=== PATIENT | male | born 1965 | race Caucasian/White ===

== ENCOUNTER 2022-02-05 22:00 | Inpatient (IN) | payer BC ==
[~2022-02-05] VITALS: Ht 177.8 cm; Wt 80.8 kg
[2022-02-05 22:08] VITALS: BP 144/72
[2022-02-05 22:41] LABS: BILIRUBIN Negative (Negative); BLOOD Negative (Negative); CLARITY Clear (Clear); COLOR Yellow (Yellow); GLUCOSE Negative (Negative); KETONE Trace (Negative); LEUKO ESTERASE Negative (Negative); NITRITE Negative (Negative); UROBILINOGEN 0.2 E.U./dl (0.0-1.0)
[2022-02-05 22:54] LABS: BASO % 0.3 % (0.0-1.0); EOS % 0.3 % (1.0-4.0); HEMATOCRIT 43.8 % (42.0-52.0); LYMPH # 0.9 10*3/uL (1.3-4.4); LYMPH % 8.1 % (27.0-41.0); MEAN CELL VOLUME 95.6 fl (80.0-94.0); MEAN CORPUSCULAR HGB 32.8 pg (27.0-31.0); MEAN CORPUSCULAR HGB CONC 34.2 g/dl (33.0-37.0); MEAN PLATELET VOLUME 11.2 fl (9.6-12.3); MONO # 0.9 10*3/uL (0.1-1.0); MONO % 8.4 % (3.0-9.0); NEUT # 8.8 10*3/uL (2.3-7.9); NEUT % 82.7 % (47.0-73.0); PLATELET COUNT AUTOMATED 163 10*3/uL (130-400); RED BLOOD COUNT 4.58 10*6/uL (4.50-5.90); RED CELL DISTRI WIDTH 12.1 % (0-14.5); WHITE BLOOD COUNT 10.7 10*3/uL (4.8-10.8)
[2022-02-05 22:54] LABS: MUCOUS 1+
[2022-02-05 22:55] LABS: RBC 0-2 rbc/hpf (0-2); WBC 0-2 wbc/hpf (0-5)
[2022-02-05 23:09] LABS: ALKALINE PHOSPHATASE 70 U/L (45-117); BUN 15 mg/dl (7-24); CHLORIDE 105 mmol/L (98-107); CREATININE 1.18 mg/dL (0.70-1.30); POTASSIUM 3.9 mmol/L (3.5-5.1); SGOT/AST 31 IU/L (3-35); SGPT/ALT 44 U/L (12-78); SODIUM 137 mmol/L (136-145); TOTAL PROTEIN 7.6 gm/dL (6.4-8.2)
[2022-02-06] VITALS (12 sets, daily range): BP systolic 100–135; BP diastolic 56–88
[2022-02-06] MEDS ORDERED: LEVOTHYROXINE75 MCG PO (07:13)
[2022-02-06] MEDS ORDERED: PROTONIX40 MG PO (07:14)
[2022-02-06] MEDS ORDERED: VALACYCLOVIR500 M1 PO (07:14)
[2022-02-06] MEDS ORDERED: LIPITOR20 MG PO (07:14)
[2022-02-06] MEDS ORDERED: XANAX1 MG PO (07:15)
[2022-02-06] MEDS ORDERED: HYDROCODONE-AC1 EAC1 PO (18:57)
[2022-02-07] VITALS: BP 102/75
[2022-02-07 06:07] LABS: ALKALINE PHOSPHATASE 56 U/L (45-117); BUN 19 mg/dl (7-24); CHLORIDE 106 mmol/L (98-107); CREATININE 1.28 mg/dL (0.70-1.30); POTASSIUM 4.3 mmol/L (3.5-5.1); SGOT/AST 14 IU/L (3-35); SGPT/ALT 27 U/L (12-78); SODIUM 139 mmol/L (136-145); TOTAL PROTEIN 6.4 gm/dL (6.4-8.2)
[2022-02-07 06:12] LABS: BASO % 0.1 % (0.0-1.0); HEMATOCRIT 39.6 % (42.0-52.0); LYMPH # 0.6 10*3/uL (1.3-4.4); LYMPH % 5.6 % (27.0-41.0); MEAN CELL VOLUME 98.5 fl (80.0-94.0); MEAN CORPUSCULAR HGB 33.3 pg (27.0-31.0); MEAN CORPUSCULAR HGB CONC 33.8 g/dl (33.0-37.0); MEAN PLATELET VOLUME 11.9 fl (9.6-12.3); MONO # 0.8 10*3/uL (0.1-1.0); MONO % 8.1 % (3.0-9.0); NEUT # 8.5 10*3/uL (2.3-7.9); NEUT % 85.9 % (47.0-73.0); PLATELET COUNT AUTOMATED 142 10*3/uL (130-400); RED BLOOD COUNT 4.02 10*6/uL (4.50-5.90)
[2022-02-07 08:00] VITALS: BP 110/59
[2022-02-07 12:00] VITALS: BP 111/73
[2022-02-07 16:00] VITALS: BP 120/72
[2022-02-07 20:00] VITALS: BP 121/63
[2022-02-08] VITALS: BP 128/72
[2022-02-08 06:10] LABS: BUN 21 mg/dl (7-24); CHLORIDE 104 mmol/L (98-107); CREATININE 1.28 mg/dL (0.70-1.30); POTASSIUM 3.8 mmol/L (3.5-5.1); SODIUM 139 mmol/L (136-145)
[2022-02-08 06:54] LABS: BASO % 0.1 % (0.0-1.0); EOS # 0.1 10*3/uL (0.0-0.4); EOS % 1.4 % (1.0-4.0); HEMATOCRIT 41.5 % (42.0-52.0); LYMPH # 0.6 10*3/uL (1.3-4.4); LYMPH % 8.6 % (27.0-41.0); MEAN CELL VOLUME 97.9 fl (80.0-94.0); MEAN CORPUSCULAR HGB 32.8 pg (27.0-31.0); MEAN CORPUSCULAR HGB CONC 33.5 g/dl (33.0-37.0); MEAN PLATELET VOLUME 11.6 fl (9.6-12.3); MONO # 0.7 10*3/uL (0.1-1.0); MONO % 9.2 % (3.0-9.0); NEUT # 5.9 10*3/uL (2.3-7.9); NEUT % 80.4 % (47.0-73.0); PLATELET COUNT AUTOMATED 157 10*3/uL (130-400); RED BLOOD COUNT 4.24 10*6/uL (4.50-5.90); RED CELL DISTRI WIDTH 12.1 % (0-14.5); WHITE BLOOD COUNT 7.3 10*3/uL (4.8-10.8)
[2022-02-08 08:00] VITALS: BP 117/66
[2022-02-08] MEDS ORDERED: AMOX-CLAV 875-1 EACH PO (11:11)
[2022-02-08] MEDS ORDERED: HYDROCODONE-AC1 EAC1 PO (11:13)
[2022-02-08 12:00] VITALS: BP 128/82
== END 2022-02-08 13:00 | disposition home or self-care (01) | DRG 853 ==
LOC: ED 22:00 → 5E 02-06 05:17 → EDHOLD 02-06 05:17 → 5E 02-06 05:43
PROVIDERS: Emergency Medicine; Student in an Organized Health Care Education/Training Program; ADMIT Family Medicine; ATTEND Family Medicine
PROC: 0DTJ4ZZ Resection of Appendix, Percutaneous Endoscopic Approach (ICD-10-PCS; principal; 2022-02-06)
DX: A41.9 Sepsis, unspecified organism (principal); K35.32 Acute appendicitis with perforation, localized peritonitis, and gangrene, without abscess; E44.1 Mild protein-calorie malnutrition; K21.9 Gastro-esophageal reflux disease without esophagitis; M54.50 Low back pain, unspecified; G89.29 Other chronic pain; E03.9 Hypothyroidism, unspecified; R73.9 Hyperglycemia, unspecified; E78.2 Mixed hyperlipidemia; Z80.9 Family history of malignant neoplasm, unspecified; Z81.8 Family history of other mental and behavioral disorders; Z79.899 Other long term (current) drug therapy; Z68.25 Body mass index [BMI] 25.0-25.9, adult; Z90.49 Acquired absence of other specified parts of digestive tract